=== PATIENT | female | born 1990 | race Two or more races ===

== ENCOUNTER 2018-07-17 19:23 | Emergency (ER) | payer OTHER ==
[~2018-07-17] VITALS: Ht 160 cm; Wt 81.6 kg
[2018-07-17] MEDS ORDERED: Ketorolac 30mg Inj IV ONE (19:45)
--- NOTE | 2018-07-17 19:45 | Emergency Room Report ---
History of Present Illness General Chief Complaint: Abdominal Pain Source: Patient Present Illness HPI This is a 27-year-old female who has no past medical history. She is currently breast-feeding. She presents with chief complaint of epigastric pain. Onset 2 hours ago. Pain waiting to her back. Has nausea and vomiting. No diarrhea. Pain is 8 out of 10. Similar symptom once when she was . He went away pretty quickly. Denies any other complaint. No family history of gallstone that she knows of. Nothing made it better. Palpation made it worse. Allergies: Coded Allergies: No Known Allergies (Unverified , 07/17/18) Patient History Past Medical History: none, see triage record, old chart reviewed Past Surgical History: none Pertinent Family History: none Social History: Denies: smoking Last Menstrual Period: 07/17/18 Now: No Immunizations: other Reviewed Nursing Documentation: PMH: Agreed; PSxH: Agreed Nursing Documentation-PMH Past Medical History: No Stated History Review of Systems Eye: Denies: eye pain, blurred vision ENT: Denies: ear pain, nose congestion, throat swelling Respiratory: Denies: cough, shortness of breath Cardiovascular: Denies: chest pain, palpitations Gastrointestinal: Reports: abdominal pain, nausea, vomiting; Denies: diarrhea Musculoskeletal: Denies: back pain, joint pain Skin: Denies: rash Neurological: Denies: headache, numbness Endocrine: Denies: increased thirst, increased urine Hematologic/Lymphatic: Denies: easy bruising All Other Systems: negative except mentioned in HPI Physical Exam Vital Signs Date Time Temp Pulse Resp B/P (MAP) Pulse Ox O2 Delivery O2 Flow Rate FiO2 07/17/18 19:31 97.5 78 21 109/72 99 Room Air vitals normal Sp02 EP Interpretation: reviewed, normal General Appearance: well appearing, no apparent distress, alert Head: normocephalic, atraumatic Eyes: bilateral eye PERRL, bilateral eye EOMI ENT: hearing grossly normal, normal pharynx Neck: full range of motion, supple, no meningismus Respiratory: chest non-tender, lungs clear, normal breath sounds Cardiovascular #1: regular rate, rhythm, no murmur Gastrointestinal: normal bowel sounds, no mass, no organomegaly, no bruit, non- distended, tenderness - Epigastric Musculoskeletal: back normal, gait/station normal, normal range of motion Psychiatric: mood/affect normal Skin: warm/dry Medical Decision Making Diagnostic Impression: Primary Impression: Cholelithiasis Qualified Codes: K80.20 - Calculus of gallbladder without cholecystitis without obstruction Additional Impressions: Biliary colic UTI (urinary tract infection) Qualified Codes: N30.00 - Acute cystitis without hematuria ER Course Patient presents with biliary colic and gallstone. She has no evidence of cholecystitis. Her white count is elevated but this could be secondary to stress response from pain. There is no other evidence of any inflammatory changes. Pain improved greatly after Toradol. No evidence of any obstruction or pancreatitis. We'll discharge home. Lab Results Impression LABS WITH elevated WBC CT/MRI/US Diagnostic Results CT/MRI/US Diagnostic Results : Imaging Test Ordered: Abdominal ultrasound Impression Read by radiologist. Cholelithiasis. No pericholecystic fluid. Common bile duct normal. Last Vital Signs Date Time Temp Pulse Resp B/P (MAP) Pulse Ox O2 Delivery O2 Flow Rate FiO2 07/17/18 19:31 97.5 78 21 109/72 99 Room Air Status: improved Disposition: HOME, SELF-CARE Condition: Stable Scripts Ibuprofen* (MOTRIN*) 600 Mg Tablet 600 MG ORAL THREE TIMES A DAY, #30 TAB 0 Refills Prov: Geovanny Pena MD 07/17/18 Hydrocodone/Acetaminophen 5-325* (HYDROCODONE/ACETAMINOPHEN 5-325*) 1 Each Tablet 1 TAB ORAL Q6H PRN for For Pain, #15 TAB 0 Refills Prov: Geovanny Pena MD 07/17/18 Additional Instructions: Follow-up with your doctor in 7 days. Low-fat diet. You may need a referral to see a surgeon. Return if worse. Geovanny Pena MD Jul 17, 2018 19:45
[2018-07-17 20:03] LABS: BASOPHILS % (AUTO) 0.5 % (0.0-2.0); EOSINOPHILS % (AUTO) 0.5 % (0.0-3.0); HEMATOCRIT 39.4 % (37.0-47.0); HEMOGLOBIN 13.9 G/DL (12.0-16.0); LYMPHOCYTES % (AUTO) 12.7 % (20.0-45.0); MEAN CORPUSCULAR VOLUME 85 FL (80-99); MONOCYTES % (AUTO) 5.3 % (1.0-10.0); PLATELET COUNT 328 K/UL (150-450); RED BLOOD COUNT 4.66 M/UL (4.20-5.40); RED CELL DISTRIBUTION WIDTH 10.3 % (11.6-14.8); WHITE BLOOD COUNT 16.9 K/UL (4.8-10.8)
[2018-07-17 20:03] LABS: APPEARANCE,URINE SLIGHTLY CLOUDY; BILIRUBIN, URINE NEGATIVE (NEGATIVE); GLUCOSE, URINE (UA) NEGATIVE (NEGATIVE); KETONES,URINE 2+ (NEGATIVE); LEUKOCYTE ESTERASE ,URINE 2+ (NEGATIVE); NITRITE,URINE NEGATIVE (NEGATIVE); PH,URINE 5 (4.5-8.0); PROTEIN,URINE 2+ (NEGATIVE); UROBILINOGEN,URINE 1 MG/DL (0.0-1.0)
[2018-07-17 20:07] VITALS: BP 114/70
[2018-07-17 20:07] LABS: COLOR,URINE YELLOW
[2018-07-17 20:12] LABS: ANION GAP 10 mmol/L (5-15); BLOOD UREA NITROGEN 16 mg/dL (7-18); CALCIUM 9.1 MG/DL (8.5-10.1); CARBON DIOXIDE 28 MMOL/L (21-32); CHLORIDE 103 MMOL/L (98-107); CREATININE 0.6 MG/DL (0.55-1.30); POTASSIUM 4.1 MMOL/L (3.5-5.1); SODIUM 141 MMOL/L (136-145)
[2018-07-17 20:18] LABS: ALANINE AMINOTRANSFERASE 44 U/L (12-78); ALBUMIN 3.8 G/DL (3.4-5.0); ALBUMIN/GLOBULIN RATIO 0.8 (1.0-2.7); ALKALINE PHOSPHATASE 104 U/L (46-116); ASPARTATE AMINO TRANSFERASE 37 U/L (15-37); BILIRUBIN,TOTAL 0.3 MG/DL (0.2-1.0)
[2018-07-17] MEDS ORDERED: cefTRIAXone 1 GM in NS 55 ML IVPB ONE (20:45)
[2018-07-17] MEDS ORDERED: IBUPROFEN600 MG ORAL (20:52)
[2018-07-17] MEDS ORDERED: HYDROCODON-ACE1 EA15 ORAL (20:52)
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
[2018-07-17 21:05] VITALS: BP 115/75
== END 2018-07-17 21:00 | disposition home or self-care (01) ==
LOC: EMR 19:45
DX: K80.70 Calculus of gallbladder and bile duct without cholecystitis without obstruction (principal); N30.00 Acute cystitis without hematuria
CPT/HCPCS: 36415; 76705; 80053; 81003; 83690; 85025; 96361; 96365; 96375; 99284; J0696; J1885; J2405

== ENCOUNTER 2019-06-26 11:59 | Emergency (ER) | payer OTHER ==
[~2019-06-26] VITALS: Ht 160 cm; Wt 83.9 kg
[~2019-06-26 11:59] MED LIST: HYDROCODON-ACE1 EA15 ORAL; IBUPROFEN600 MG ORAL
[2019-06-26] MEDS ORDERED: SILVADENE20 GM TP (12:22)
[2019-06-26] MEDS ORDERED: GENTAK3.5 GM OP (12:22)
[2019-06-26] MEDS ORDERED: NORCO 5-325 TA1 EACH ORAL (12:22)
[2019-06-26] MEDS ORDERED: Tetanus/Diptheria/Pertussis IM ONE (12:30)
[2019-06-26] MEDS ORDERED: Gentamicin 0.3% Opth Soln 5ml ONE (12:32)
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
[2019-06-26 13:12] VITALS: BP 114/73
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
== END 2019-06-26 12:40 | disposition home or self-care (01) ==
LOC: EMR 12:35
DX: T20.10XA Burn of first degree of head, face, and neck, unspecified site, initial encounter (principal); T22.10XA Burn of first degree of shoulder and upper limb, except wrist and hand, unspecified site, initial encounter; T79.9XXA Unspecified early complication of trauma, initial encounter; X10.2XXA Contact with fats and cooking oils, initial encounter; Y92.9 Unspecified place or not applicable; Z23 Encounter for immunization
CPT/HCPCS: 90471; 90715; Z7502; 99283